=== PATIENT | male | born 1975 | race Caucasian/White ===

== ENCOUNTER 2016-06-12 13:13 | Outpatient (CLI) | payer OTHER ==
[2016-06-12] MEDS ORDERED: GADOPENTETATE DIMEGLUMINE 5 ML VIAL IVP ONE (14:36)
[2016-06-12] MEDS ORDERED: IOTHALAMATE MEGLUMINE 50 ML VIAL IVP ONE (14:36)
[2016-06-12] MEDS ORDERED: BUFFERED LIDOCAINE 10 ML SYRINGE IU ONE (14:36)
== END 2016-06-12 13:14 | disposition home or self-care (01) ==
DX: M75.91 Shoulder lesion, unspecified, right shoulder (principal); M19.011 Primary osteoarthritis, right shoulder
CPT/HCPCS: 23350; 73222; 77002; Q9961

== ENCOUNTER 2018-02-15 11:23 | Outpatient (CLI) | payer OTHER | END 2018-02-15 11:24 | disposition home or self-care (01) | LOC: DI 11:23 | PROVIDERS: ATTEND Family Medicine | DX: R00.2 Palpitations (principal); R00.1 Bradycardia, unspecified | CPT/HCPCS: 93306 ==

== ENCOUNTER 2023-05-26 09:43 | Day surgery (SDC) | payer OTHER ==
[2023-05-26] MEDS ORDERED: LACTATED RINGERS 1,000 ML IV ONE (09:50)
--- NOTE | 2023-05-26 10:52 | ANESTHESIA ---
Pre-Anesthesia VS, & Labs - Diagnosis screening - Procedure colonoscopy Vital Signs: Temp Pulse Resp BP Pulse Ox O2 Flow Rate 36.6 C 45 L 18 146/82 H 100 05/26/23 09:54 05/26/23 09:54 05/26/23 09:54 05/26/23 09:54 05/26/23 09:54 Height: 5 ft 9 in Weight (kg): 86 kg Body Mass Index: 28.0 BMI Classification: Overweight - NPO >8 hours Home Medications and Allergies Home Medications: Ambulatory Orders Lisinopril [Zestril] 20 mg PO DAILY 05/25/23 Lisinopril [Zestril] 20 mg PO DAILY 05/25/23 Allergies/Adverse Reactions: Allergies Allergy/AdvReac Type Severity Reaction Status Date / Time amoxicillin Allergy Intermediate Hives Verified 05/25/23 13:05 Anes History & Medical History - Anesthetic History Anesthesia Complications: reports: No previous complications Family history of Anesthesia Complications: Denies Family history of Malignant Hyperthermia: Denies - Medical History Cardiovascular: reports: Hypertension Pulmonary: reports: None Gastrointestinal: reports: GERD Urinary: reports: None Musculoskeletal: reports: None Endocrine/Autoimmune: reports: None Skin: reports: None Smoking Status: Never smoker - Surgical History General: reports: Appendectomy Exam General: Alert, Oriented x3, Cooperative Dental: WNL Mouth Openin Fingerbreadth Neck Mobility: Normal Thyromental Distance: 4-6 cm Respiratory: Lungs clear Cardiovascular: Regular rate Plan Anesthesia Type: General, Total IV Consent for Procedure(s) Verified and Reviewed: Yes Code Status: Attempt Resuscitation ASA classification: 2-Mild systemic disease Is this case an emergency?: No
[2023-05-26] MEDS ORDERED: PROPOFOL 500 MG/50 ML 500 MG/50 ML VIAL ONE (11:03)
[2023-05-26] MEDS ORDERED: MIDAZOLAM 2 MG/2 ML VIAL ONE (11:09)
[2023-05-26] MEDS ORDERED: PROPOFOL 200 MG/20 ML VIAL IVP ONE (11:38)
[2023-05-26] MEDS ORDERED: LACTATED RINGERS 700 ML IV ONE (12:02)
[2023-05-26 12:22] VITALS: O2SAT 100
[2023-05-26 13:11] VITALS: BP 112/66
--- NOTE | 2023-05-26 14:15 | ANESTHESIA POST OP EVALUATION ---
Anesthesia Post Eval - Post Anesthesia Eval Vitals: Last Vital Signs Temp 36.3 C L 05/26/23 12:45 Pulse 57 L 05/26/23 12:45 Resp 16 05/26/23 12:45 BP 112/66 05/26/23 12:45 Pulse Ox 100 05/26/23 12:45 O2 Flow Rate CV Function Including HR & BP: Stable Pain Control: Satisfactory Nausea & Vomiting: Negative Mental Status: Baseline Respiratory Status: Airway Patent Hydration Status: Satisfactory Anesthesia Complications: None
== END 2023-05-26 09:44 | disposition home or self-care (01) ==
LOC: SDS 09:43
PROVIDERS: ATTEND Surgery
PROC: 0DBL8ZZ Excision of Transverse Colon, Via Natural or Artificial Opening Endoscopic (ICD-10-PCS; principal; 2023-05-26 10:45)
DX: Z12.11 Encounter for screening for malignant neoplasm of colon (principal); D12.3 Benign neoplasm of transverse colon; I10 Essential (primary) hypertension
CPT/HCPCS: 45385; J7120

== ENCOUNTER 2023-07-07 12:37 | Outpatient (CLI) | payer OTHER | END 2023-07-07 12:38 | disposition home or self-care (01) | LOC: DI 12:37 | PROVIDERS: ATTEND Family Medicine | DX: I51.7 Cardiomegaly (principal); R00.1 Bradycardia, unspecified | CPT/HCPCS: 93307 ==